=== PATIENT | female | born 1965 | race Two or more races ===

== ENCOUNTER → 2018-08-04 | Outpatient (CLI) | payer OTHER ==
--- NOTE | 2018-08-05 13:21 | RAD ---
DATE: 08/04/2018 EXAM: DIGITAL SCREEN BILAT W/CAD HISTORY: Routine screening COMPARISON: 11/08/2014 This study was interpreted with the benefit of Computerized Aided Detection (CAD). Breast Density: SCATTERED The breast parenchyma shows scattered fibroglandular densities. Breast parenchyma level B. FINDINGS: Small benign-appearing lymph node type densities are noted laterally in the right breast. No new or enlarging breast densities are seen. Benign type calcification is present. No suspicious microcalcifications have developed. IMPRESSION: Stable mammograms without evidence of malignancy. BI-RADS CATEGORY: 2 BENIGN FINDING(S) RECOMMENDED FOLLOW-UP: 12M 12 MONTH FOLLOW-UP PQRS compliance statement: Patient information was entered into a reminder system with a target due date for the next mammogram. Mammography is a sensitive method for finding small breast cancers, but it does not detect them all and is not a substitute for careful clinical examination. A negative mammogram does not negate a clinically suspicious finding and should not result in delay in biopsying a clinically suspicious abnormality. "Our facility is accredited by the [employer] Mammography [employer]."
== END | disposition home or self-care (01) ==
LOC: MAMMO 15:07
PROVIDERS: ATTEND Family Medicine
DX: Z12.31 Encounter for screening mammogram for malignant neoplasm of breast (principal)
CPT/HCPCS: 77067

== ENCOUNTER → 2019-04-05 | Day surgery (SDC) | payer OTHER ==
[~2019-04-05] MED LIST: LIDOCAINE 1% Multi-Dose 20 ML VIAL. IJ ONE; LIDOCAINE 1%/EPI 1:100,000 20 ML VIAL. INJ ONE
[2019-04-05 12:25] VITALS: BP 145/91
--- NOTE | 2019-04-05 13:37 | PDOC ---
BRIEF OPERATIVE NOTE Date: April 05, 2019 Pre-Op Diagnosis cyst posterior right shoulder Post-Op Diagnosis same Procedure Performed excision Surgeon Gerardo Anesthesia Type: Local Blood Loss scant Specimens Obtained skin and subcutaneous tissue, 2x2x1 cm Findings cyst Complications none Operative Note Wk # [id number] YUN MCKAY MD April 05, 2019 13:37
--- NOTE | 2019-04-05 13:41 | DISCH ---
DISCHARGE INSTRUCTIONS Condition on Discharge Condition on Discharge: Stable Activity After Discharge Activity Instructions for Disc: Activity as tolerated, Avoid exertion Lifting Instructions after Dis: No heavy lifting Diet after Discharge Diet after Discharge: Regular Wound Incision Care Wound/Incision Care: Ice to area for comfort Other wound/incision instructi: march Follow-Up Follow up with: Gerardo next week YUN MCKAY MD April 05, 2019 13:41
--- NOTE | 2019-04-05 13:46 | OP ---
DATE OF SURGERY: 04/05/2019 PREOPERATIVE DIAGNOSIS: Cyst, posterior right shoulder. POSTOPERATIVE DIAGNOSIS: Cyst, posterior right shoulder. PROCEDURE: Excision. SURGEON: Yun Mckay MD. ANESTHESIA: Local. ESTIMATED BLOOD LOSS: Scant. SPECIMEN: Skin and subcutaneous tissue, right posterior shoulder, 2 x 2 x 1 cm. DESCRIPTION OF PROCEDURE: After informed consent, the patient was placed in the left lateral decubitus position and the area of concern right shoulder was prepped and draped in usual sterile fashion. An elliptical incision was outlined with a marking pen, infiltrated with 1% lidocaine with epinephrine, incised, the skin and underlying process removed en bloc. Hemostasis with cautery. Wound closed with interrupted 3-0 Vicryl in the subcutaneous tissue, a subcuticular 4-0 Monocryl with Steri-Strips for the skin. Sterile dressing applied. The patient tolerated well. Follow up in the office. YUN MCKAY MD DR: LEOBARDO/nts JOB#: [id number] / [id number]
--- NOTE | 2019-04-07 19:06 | PATHOLOGY ---
[facility] Accession Number: [id number] . 01 Material submitted: . shoulder - RIGHT SHOULDER SKIN AND SUBCUTANEOUS TISSUE. Modifiers: right . 01 Clinical history: . Cyst, right shoulder . 02 Diagnosis: Skin and subcutaneous tissue, right shoulder cyst excision: - Ruptured epidermal inclusion cyst showing acute and chronic inflammation and foreign body granulomatous reaction to keratin material. ([facility]; 04/07/2019) MBR/04/07/2019 . 02 Comment: There is no evidence of malignancy. ([facility]; 04/07/2019) . 02 Electronically signed: . Steffen Trejo MD, Pathologist NPI- [id number] . 01 Gross description: . The specimen is received in formalin, labeled "Ann Jarvis, right shoulder, skin and subcutaneous tissue", is an unoriented ellipse of dark brown skin measuring 2.0 x 0.7 cm with underlying subcutaneous tissue consisting of a disrupted cyst. The specimen is serially sectioned and entirely submitted in A1. ([facility]; 04/05/2019) SHS/SHS . 02 Pathologist provided ICD-10: L72.0, L08.9 . 02 CPT . 091330 Specimen Comment: Report sent to / DR EASTMAN Performed at: 01 [facility] [address], [place], [place] [id number] MD Isac Tracey MD Phone: [phone] Performed at: [facility] [address], [place] [id number] MD Steffen Trejo MD Phone: [phone]
== END | disposition home or self-care (01) ==
LOC: SURG 11:50
PROVIDERS: ATTEND Surgery
DX: L72.0 Epidermal cyst (principal); L08.89 Other specified local infections of the skin and subcutaneous tissue; D64.9 Anemia, unspecified; Z79.899 Other long term (current) drug therapy; Z90.49 Acquired absence of other specified parts of digestive tract; Z98.890 Other specified postprocedural states; Z82.49 Family history of ischemic heart disease and other diseases of the circulatory system; Z88.0 Allergy status to penicillin; Z88.1 Allergy status to other antibiotic agents; Z88.8 Allergy status to other drugs, medicaments and biological substances
CPT/HCPCS: 23075; 88304; J3490

== ENCOUNTER → 2019-09-21 | Outpatient (CLI) | payer OTHER ==
[2019-04-05 12:25] VITALS: BP 145/91
--- NOTE | 2019-09-21 18:56 | KCIC ---
Bilateral digital screening mammograms: Reason for examination: Routine screening. Comparison is made to previous studies dated 08/04/2018 and 11/08/2014. Interpretation was made with the benefit of CAD. The skin and nipples show no abnormalities. No abnormal axillary lymph nodes are seen. The breast parenchyma shows scattered fibroglandular density. (Breast density: Category B.) There are small intramammary lymph nodes in the right breast. There are no new dominant masses, suspicious calcifications or architectural distortions. Impression: No evidence of malignancy. Recommend routine screening. BI-RADS Category 2: Benign. "Our facility is accredited by the [employer] Mammography Program." This patient's information has been entered into a reminder system for the patient to be notified with the results of her examination and a target date for the next mammogram. Electronically signed by: Karmen Solis MD (09/21/2019 6:53 PM) [id number]
== END | disposition home or self-care (01) ==
LOC: KCIC MAMMO 15:53
PROVIDERS: ATTEND Nurse Practitioner Gerontology
DX: Z12.31 Encounter for screening mammogram for malignant neoplasm of breast (principal)
CPT/HCPCS: 77067

== ENCOUNTER → 2019-10-03 | Outpatient (CLI) | payer OTHER ==
[2019-04-05 12:25] VITALS: BP 145/91
--- NOTE | 2019-10-03 17:11 | KCIC ---
PELVIS W/TV History: Postmenopausal bleeding for 4 days Comparison: None. Findings: Multiple transabdominal sonographic images of the pelvis are submitted. Uterus measured 6.9 x 4.6 x 3.7 cm. Neither ovary is demonstrated. Endometrium is not significantly thickened about 0.2 cm. Transvaginal ultrasound: Multiple transvaginal sonographic images of pelvis are submitted. Endometrium is estimated about 0.4 cm in greatest thickness. There is no significant free fluid. Left ovary could not be visualized on this exam. Right ovary measured 2.9 x 1.8 x 1.4 cm with normal low resistance vascularity. Impression: 1. No significant endometrial thickening is demonstrated. Left ovary could not be visualized on this exam. Electronically signed by: Drake Evans MD (10/03/2019 5:08 PM) [id number]
== END | disposition home or self-care (01) ==
LOC: KCIC US 14:35
PROVIDERS: ATTEND Family Medicine
DX: N95.0 Postmenopausal bleeding (principal)
CPT/HCPCS: 76830; 76856